=== PATIENT | male | born 2000 | race Caucasian/White ===

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

== ENCOUNTER 2023-10-16 15:48 | Emergency (ER) | payer OTHER, SELFPAY ==
[2023-10-16 15:51] VITALS: BP 129/56; PULSE 99; RESP 20; TEMP 36.7; O2SAT 100
[2023-10-16] MEDS: Amox. 875/Clav. 125, 2 TABS/BTL 1 TAB PO (16:32)
--- NOTE | 2023-10-16 16:35 | NUR.NOTE ---
Nursing Note: spoke with [facility] officer regarding the Animal Bite Form [facility] clerks [facility].
--- NOTE | 2023-10-16 20:01 | W.ED.GENAD ---
Discharge Plan Disposition Patient Disposition: Home Discharge Details Clinical Impression: Dog bite, Injury of left thumb Primary Care Provider: Sanjay Asher ED Provider: Niya Braxton Home Meds and New Rx's Prescriptions: New amoxicillin-pot clavulanate 875-125 mg tablet 1 tab PO BID Qty: 18 0RF Discharge Instructions Instructions: Animal Bites ED Additional Instructions: you have declined xray, however we can't exclude an open fracture or joint injury please keep your thumb immobilized change dressing every day and wash with soap and water apply bacitracin topically and take antibiotic as prescribed return with spreading redness, fever, continued difficulty with ranging your thumb, or should any new or worsening complaints Referrals: Sanjay Asher [Primary Care Provider] - 3 days Discharge Data Discharge Date/Time-TO BE ENTERED AT DEPARTURE: 10/16/23 16:30 HPI General Date/Time Provider Initiated Documentation: 10/16/23 15:54. HPI Narrative: This 23-year-old male presents with injury to left thumb, dog bite by own dog just prior to arrival. Dog was trying to escape outside patient accidentally was bitten when he grabbed the dog's collar. Dog is new to him as a rescue. Patient states tetanus up-to-date. Denies strength or sensation change. The event occurred just prior to arrival per patient. Has pain with flexion of the thumb. Related Data Home Medications Medication Instructions Recorded Confirmed amoxicillin 875 mg-potassium 1 tab PO BID #18 tabs 10/16/23 clavulanate 125 mg tablet Previous Rx's Medication Instructions Recorded amoxicillin 875 mg-potassium 1 tab PO BID #18 tabs 10/16/23 clavulanate 125 mg tablet Allergies Allergy/AdvReac Type Severity Reaction Status Date / Time No Known Allergies Allergy Unverified 10/16/23 15:54 General Stated Complaint: AnimalBite CORY: 4 Exam Narrative Exam Narrative: 23-year-old male, alert and oriented, laceration to dorsal aspect of left thumb, approximately 1 inch superficial laceration, puncture noted to palmar aspect of thumb and small puncture noted to right index finger along the dorsal aspect, flexion intact. Cap refill intact, sensation intact. Course Vital Signs Vital signs: Vital Signs Temperature 36.7 C 10/16/23 15:51 Pulse 99 H 10/16/23 15:51 Respiratory Rate 20 10/16/23 15:51 Blood Pressure 129/56 L 10/16/23 15:51 Pulse Oximetry 100 10/16/23 15:51 Temperature 36.7 C 10/16/23 15:51 Temperature Source Oral 10/16/23 15:51 Pulse 99 H 10/16/23 15:51 Respiratory Rate 20 10/16/23 15:51 Respiratory Effort Normal, Non-Labored 10/16/23 15:56 Blood Pressure 129/56 L 10/16/23 15:51 Blood Pressure Position Sitting 10/16/23 15:51 Pulse Oximetry 100 10/16/23 15:51 Oxygen Delivery Method Room Air 10/16/23 15:51 Oxygen Flow Rate 0 10/16/23 15:51 Pain Level 2 10/16/23 15:51 Medical Decision Making 23-year-old male presenting after dog bite by own dog. Up-to-date on rabies vaccine, patient's tetanus is up-to-date. Recommendation for x-ray to exclude fracture, patient has declined and is fully alert, oriented, of decisional capacity. I specifically discussed the risk including that of an open fracture patient has declined. He is agreeable to taking antibiotics and applying a bulky dressing after cleaning. We cleaned copiously in the emergency department and recommendation for close outpatient reassessment as we have not excluded an open fracture at this time. Patient was given 10-day course of Augmentin which she will take. Was recommended to have this rechecked in 48 hours or to return earlier should he have new or worsening complaints, imaging recommended also in the outpatient setting as patient is aware we cannot exclude fracture at this time. No evidence of obvious Flexin injury. Mandated reporting supply. Quality:[facility] Health Related Social Needs: No Data to Display [facility] All Active Problems (Updated 10/16/23 @ 16:25 by GERSON Ford) Injury of left thumb (Acute) Dog bite (Acute) Abrasion of arm, right (Acute) Medical History No significant past medical history Surgical History History of appendectomy History of hernia repair Social History Smoking/Tobacco Use Status: Never Smoking risk assessment performed?: Yes Alcohol Intake: never Drug use: Occasionally Substance use type: marijuana Do you feel safe at home: Yes Do you feel safe in your relationship?: Yes
== END 2023-10-16 16:30 | disposition home or self-care (01) ==
LOC: ER 16:37
PROVIDERS: Emergency Provider Physician Assistant; PCP Internal Medicine
DX: S61.032A Puncture wound without foreign body of left thumb without damage to nail, initial encounter (principal); W54.0XXA Bitten by dog, initial encounter
CPT/HCPCS: 99283